=== PATIENT | female | born 1930 | race Caucasian/White ===

== ENCOUNTER 2018-03-22 06:46 | Day surgery (SDC) | payer MEDICARE, BC ==
[~2018-03-22] VITALS: Ht 165.1 cm; Wt 106.4 kg
[~2018-03-22 06:46] MED LIST: APIX2.5T PO; LEVO100T PO; METO25TA35 PO
[2018-03-22] MEDS ORDERED: LACTATED RINGERS 1,000 ML IV SCH (07:22)
[2018-03-22 07:25] VITALS: BP 154/90
[2018-03-22] MEDS ORDERED: ACETAMINOPHEN 500 MG TABLET PO ONE (07:30)
[2018-03-22] MEDS ORDERED: LIDOCAINE-MPF 1%, 2ML INFIL ONE (07:30)
[2018-03-22] MEDS ORDERED: VIT D PO (08:04)
[2018-03-22] MEDS ORDERED: VIT C PO (08:04)
[2018-03-22] MEDS ORDERED: SERT100T5 PO (08:04)
[2018-03-22] MEDS ORDERED: VIT1TABL32 PO (08:04)
[2018-03-22] MEDS ORDERED: TOLT4CAP12 PO (08:04)
[2018-03-22] MEDS ORDERED: OMEP-110 PO (08:04)
[2018-03-22] MEDS ORDERED: PROBIOTIC PO (08:04)
[2018-03-22] MEDS ORDERED: ALEN70TA5 PO (08:04)
[2018-03-22] MEDS ORDERED: MIRA50TA PO (08:04)
[2018-03-22 08:08] LABS: MICROSCOPIC INDICATED
[2018-03-22 08:09] LABS: CULTURE INDICATED? YES
[2018-03-22] MEDS ORDERED: FENTANYL PF 100 MCG/2ML ONE (08:22)
[2018-03-22] MEDS ORDERED: ONDANSETRON 2MG/ML, 2ML IV PRN (09:00)
[2018-03-22] MEDS ORDERED: OXYcodone 5 MG/5 ML ORAL.SOL UDC PO PRN (09:00)
[2018-03-22] MEDS ORDERED: FENTANYL PF 100 MCG/2ML IV PRN (09:00)
[2018-03-22] MEDS ORDERED: HYDROmorphone 1 MG/ML, 1ML IV PRN (09:00)
[2018-03-22] MEDS ORDERED: LABETALOL 5MG/ML, 20ML IV PRN (09:00)
[2018-03-22] MEDS ORDERED: EPHEDRINE 50 MG/ML, 1ML ONE (09:40)
[2018-03-22] MEDS ORDERED: CIPROFLOXACIN/PMX 400MG/200ML 200 ML ONE (10:03)
[2018-03-22] MEDS ORDERED: CEFAZOLIN 1,000 MG ONE (10:20)
[2018-03-22] MEDS ORDERED: PROPOFOL 10 MG/ML, 20ML ONE (10:20)
[2018-03-22] MEDS ORDERED: ONDANSETRON 2MG/ML, 2ML ONE (10:20)
[2018-03-22] MEDS ORDERED: DEXAMETHASONE 4 MG/ML, 1ML ONE (10:20)
[2018-03-22] MEDS ORDERED: OMNIPAQUE 350 MG/ML, 50 ML BOTTLE IV ONE (10:53)
[2018-03-22] MEDS ORDERED: OMNIPAQUE 350 MG/ML, 50 ML BOTTLE ONE (11:07)
[2018-03-22] MEDS ORDERED: hydrALAzine 20 MG/ML, 1ML ONE (11:08)
[2018-03-22] MEDS: hydrALAzine 20 MG/ML, 1ML IV PRN ×2 (11:26→11:37)
== END 2018-03-22 16:30 | disposition home or self-care (01) ==
LOC: OUT 06:46
PROVIDERS: ATTEND Urology
DX: N20.1 Calculus of ureter (principal); N13.5 Crossing vessel and stricture of ureter without hydronephrosis; F32.9 Major depressive disorder, single episode, unspecified; I10 Essential (primary) hypertension; I48.91 Unspecified atrial fibrillation; I50.9 Heart failure, unspecified; Z88.1 Allergy status to other antibiotic agents; Z79.899 Other long term (current) drug therapy; Z98.890 Other specified postprocedural states
CPT/HCPCS: 52320; 74420; 81001; 87086; C1758; C1769; J0360; J0690; J0744; J1100; J2405; J2704; J3010; J7120; Q9967